=== PATIENT | female | born 1965 | race Caucasian/White ===

== ENCOUNTER 2016-11-17 04:31 | Emergency (ER) | payer OTHER ==
[~2016-11-17] VITALS: Ht 162.6 cm; Wt 96.2 kg
[2016-11-17 04:31] VITALS: BP_SYST 137
--- NOTE | 2016-11-17 04:31 | NUR ---
Patient to ER bed 7 to gown for evaluation. Side rails up. Report given to CHRISTINA SKINNER.
--- NOTE | 2016-11-17 04:33 | NUR ---
Patient arrived to ED a/o x 4 with c/o vertigo x 1 hour. Patient reports onset of vertigo worsens while attempting to lay down. Reports nausea without vomiting. Denies syncope. Denies ABD pain. Denies fever. Skin warm, dry and pink. Does not appear in immediate distress at this time. Will continue to monitor.
--- NOTE | 2016-11-17 04:50 | NUR ---
ED Kwaw at bedside for medical evaluation.
[2016-11-17] MEDS ORDERED: ONDANSETRON 4 MG ODT TAB PO ONE (05:00)
[2016-11-17 05:25] LABS: BILIRUBIN,URINE NEGATIVE (NEGATIVE); BLOOD, URINE 3+ (NEGATIVE); CLARITY/URINE HAZY (CLEAR); COLOR,URINE YELLOW (YELLOW); GLUCOSE,URINE NEGATIVE (NEGATIVE); KETONES,URINE NEGATIVE (NEGATIVE); LEUKOCYTE ESTERASE ,URINE NEGATIVE (NEGATIVE); NITRITE, URINE NEGATIVE (NEGATIVE); PH,URINE 5.5 (5.0-8.0); PROTEIN URINE NEGATIVE (NEGATIVE); UROBILINOGEN,URINE 0.2 (0.2-1.0)
--- NOTE | 2016-11-17 05:30 | NUR ---
Patient reports relief from nausea 30 minutes after administration of zofran. No adverse reactions noted. Will continue to monitor.
[2016-11-17 05:41] LABS: BACTERIA,URINE FEW /HPF (None Seen); MUCUS,URINE None Seen /LPF (None Seen); RBC,URINE >100 /HPF (0-3); WBC,URINE 0-3 /HPF (0-3)
[2016-11-17] MEDS ORDERED: MECLIZINE HCL 25 MG TABLET (ANITVERT) PO ONE (06:00)
--- NOTE | 2016-11-17 06:10 | NUR ---
Patient reports partial relief of dizziness 15 minutes after administration of antivert. No adverse reactions noted. Will continue to monitor.
[2016-11-17 06:45] VITALS: BP_SYST 129
--- NOTE | 2016-11-17 06:45 | NUR ---
Patient given written and verbal discharge instructions and verbalizes understanding. ER MD discussed with patient the results and treatment provided. Patient in stable condition. ID arm band removed. Rx of antivert given. Patient educated on pain management and to follow up with PMD. Pain Scale 0/10 at this time. Opportunity for questions provided and answered.
== END 2016-11-17 06:45 | disposition home or self-care (01) ==
LOC: SED 04:31
DX: H81.10 Benign paroxysmal vertigo, unspecified ear (principal); Z88.8 Allergy status to other drugs, medicaments and biological substances
CPT/HCPCS: 81000; 99283; J8597; Q0162

== ENCOUNTER 2018-08-01 16:58 | Emergency (ER) | payer OTHER ==
[~2018-08-01] VITALS: Ht 162.6 cm; Wt 95.3 kg
[2018-08-01 17:02] VITALS: BP_SYST 162
[2018-08-01] MEDS ORDERED: NACL 0.9% 1,000 ML IV ONE (17:08)
[2018-08-01] MEDS ORDERED: ONDANSETRON HCL 4 MG/2 ML VIAL IVP ONE (17:15)
[2018-08-01] MEDS ORDERED: KETOROLAC TROMETHAMINE 30 MG VIAL IVP ONE (17:15)
[2018-08-01 18:39] LABS: BASOPHILS % (AUTO) 0.6 % (0.0-2.0); EOSINOPHILS % (AUTO) 1.1 % (0.0-4.0); HEMATOCRIT 34.8 % (36-48); HEMOGLOBIN 11.1 g/dL (12.0-16.0); LYMPHOCYTES % (AUTO) 37.6 % (20.5-51.5); MEAN CORPUSCULAR HEMOGLOBIN 24 pg (27-31); MEAN CORPUSCULAR HGB CONC 32 % (32-36); MEAN CORPUSCULAR VOLUME 74 fL (79.0-98.0); MONOCYTES % (AUTO) 6.4 % (1.7-9.3); NEUTROPHILS # (AUTO) 5.4 K/uL (1.8-7.7); NEUTROPHILS % (AUTO) 54.3 % (40.0-70.0); PLATELET COUNT (AUTO) 464 K/uL (130-430); RED BLOOD CELL COUNT(AUTO) 4.73 MIL/uL (4.2-6.2); RED CELL DISTRIBUTION WIDTH 19.4 % (9.0-15.0); WHITE BLOOD COUNT (AUTO) 9.9 K/uL (4.8-10.8)
[2018-08-01 18:40] LABS: BASOPHILS # (AUTO) 0.1 K/uL (0.0-0.2); EOSINOPHILS # (AUTO) 0.1 K/uL (0.0-0.4); LYMPHOCYTES # (AUTO) 3.7 K/uL (1.0-5.5); MONOCYTES # (AUTO) 0.6 K/uL (0.0-1.0)
[2018-08-01 18:49] LABS: CALCIUM 9.1 mg/dL (8.4-11.0); CREATININE 0.72 mg/dL (0.55-1.30); POTASSIUM 3.7 mmol/L (3.5-5.1)
[2018-08-01 18:51] LABS: INR 0.9 (0.8-1.2); PROTHROMBIN TIME 9.5 SECS (9.5-12.5)
[2018-08-01 18:58] LABS: ALBUMIN 3.6 g/dL (3.4-4.8); TOTAL BILIRUBIN 0.3 mg/dL (0.0-1.0)
[2018-08-01 19:12] VITALS: BP_SYST 148
== END 2018-08-01 19:12 | disposition home or self-care (01) ==
LOC: SED 16:58
DX: N93.8 Other specified abnormal uterine and vaginal bleeding (principal); D25.9 Leiomyoma of uterus, unspecified; R03.0 Elevated blood-pressure reading, without diagnosis of hypertension; Z88.8 Allergy status to other drugs, medicaments and biological substances
CPT/HCPCS: 36415; 76830; 76857; 80053; 81025; 82150; 82550; 83690; 84484; 84702; 85025; 85610; 85730; 96374; 96375; 99284; J1885; J2405; J7030